=== PATIENT | female | born 1995 | race Caucasian/White ===

== ENCOUNTER → 2016-10-17 | Outpatient (CLI) | payer OTHER ==
[~2016-10-17] MED LIST: ADVAIR DISKUS 11 DSK INH; ALBUTEROL2.5 MG/0.5 INH; AMOXICILLIN500 M2 PO; BACTRIM DS 8001 TAB PO; FLINTSTONES1 EACH PO; KLONOPIN1 M1 PO; NEURONTIN400 MG PO; OMEPRAZOLE MAGN20 MG PO; Zofran4 MG PO
== END | disposition home or self-care (01) ==
LOC: US 13:00
DX: Z34.92 Encounter for supervision of normal pregnancy, unspecified, second trimester (principal); Z3A.21 21 weeks gestation of pregnancy

== ENCOUNTER → 2016-12-31 | Outpatient (CLI) | payer OTHER | END | disposition home or self-care (01) | LOC: LAB 07:28 | DX: Z34.83 Encounter for supervision of other normal pregnancy, third trimester (principal); Z3A.00 Weeks of gestation of pregnancy not specified ==

== ENCOUNTER → 2017-06-17 | Outpatient (CLI) | payer OTHER | END | disposition home or self-care (01) | LOC: US 16:31 | DX: R10.2 Pelvic and perineal pain (principal) ==

== ENCOUNTER → 2018-06-24 | Outpatient (CLI) | payer OTHER ==
[~2018-06-24] MED LIST changes: +MACROBID100 M1 PO; +PYRIDIUM100 MG PO
== END | disposition home or self-care (01) ==
LOC: US 16:00
DX: R10.31 Right lower quadrant pain (principal); R10.819 Abdominal tenderness, unspecified site

== ENCOUNTER → 2019-04-07 | Outpatient (CLI) | payer OTHER ==
[~2019-04-07] MED LIST changes: +AUGMENTIN125 MG/5 M PO; +PREDNISONE10 MG PO; +SEPTDS PO
[2019-04-07 15:25] LABS: HEMATOCRIT 40.2 % (37.0-47.0); HEMOGLOBIN 13.2 g/dl (12.0-16.0); MEAN CELL VOLUME 83.8 fl (81.0-99.0); MEAN CORPUSCULAR HGB 27.5 pg (27.0-31.0); MEAN CORPUSCULAR HGB CONC 32.8 g/dl (33.0-37.0); MEAN PLATELET VOLUME 10.3 fl (9.6-12.3); RED BLOOD COUNT 4.8 10*6/uL (4.10-5.10); WHITE BLOOD COUNT 6.7 10*3/uL (4.8-10.8)
[2019-04-07 15:50] LABS: ALBUMIN 4.2 gm/dl (3.1-4.5); ALKALINE PHOSPHATASE 42 U/L (45-117); BUN 9 mg/dl (7-24); CHLORIDE 108 mmol/L (98-107); CHOLESTEROL 141 mg/dL (<200); CREATININE 0.78 mg/dL (0.55-1.02); HDL CHOLESTEROL 59 mg/dl (40-60); LDL CHOLESTEROL 72 mg/dL (9-159); POTASSIUM 3.8 mmol/L (3.5-5.1); SGOT/AST 9 IU/L (3-35); SGPT/ALT 15 U/L (12-78); SODIUM 139 mmol/L (136-145); TOTAL PROTEIN 7.5 gm/dL (6.4-8.2); TRIGLYCERIDES 51 mg/dl (<150); VLDL CHOLESTEROL 10 mg/dL (6-40)
== END | disposition home or self-care (01) ==
LOC: LAB 14:30
PROVIDERS: Family Medicine
DX: E55.9 Vitamin D deficiency, unspecified (principal); R53.83 Other fatigue; R63.5 Abnormal weight gain; K21.9 Gastro-esophageal reflux disease without esophagitis

== ENCOUNTER 2019-04-14 22:32 | Emergency (ER) | payer OTHER ==
[~2019-04-14] VITALS: Wt 47.6 kg
[~2019-04-14 22:32] MED LIST changes: -SEPTDS PO
[2019-04-14 23:08] LABS: BILIRUBIN NEGATIVE (NEGATIVE); BLOOD 3+ (NEGATIVE); CLARITY SL CLOUDY (CLEAR); COLOR YELLOW (YELLOW); GLUCOSE NEGATIVE (NEGATIVE); KETONE NEGATIVE (NEGATIVE); LEUKO ESTERASE 2+ (NEGATIVE); NITRITE NEGATIVE (NEGATIVE); SPECIFIC GRAVITY 1.015 (1.005-1.030); UROBILINOGEN 0.2 E.U./dl (0.2-1.0)
[2019-04-14 23:24] LABS: EPITHELIAL CELLS 35-40; RBC 21-30 rbc/hpf (0-2); WBC 31-40 wbc/hpf (0-5)
[2019-04-14 23:25] LABS: BACTERIA TRACE
[2019-04-15 00:11] LABS: BASO % 0.3 % (0.0-1.0); EOS # 0.3 10*3/uL (0.0-0.4); HEMATOCRIT 35.7 % (37.0-47.0); HEMOGLOBIN 11.6 g/dl (12.0-16.0); LYMPH # 2.2 10*3/uL (1.3-4.4); LYMPH % 19.8 % (27.0-41.0); MEAN CELL VOLUME 85.4 fl (81.0-99.0); MEAN CORPUSCULAR HGB 27.8 pg (27.0-31.0); MEAN CORPUSCULAR HGB CONC 32.5 g/dl (33.0-37.0); MEAN PLATELET VOLUME 9.9 fl (9.6-12.3); MONO # 0.5 10*3/uL (0.1-1.0); MONO % 4.9 % (3.0-9.0); NEUT # 7.8 10*3/uL (2.3-7.9); NEUT % 71.7 % (47.0-73.0); PLATELET COUNT AUTOMATED 302 10*3/uL (130-400); RED BLOOD COUNT 4.18 10*6/uL (4.10-5.10); RED CELL DISTRI WIDTH 12.1 % (0-14.5); WHITE BLOOD COUNT 10.9 10*3/uL (4.8-10.8)
[2019-04-15 00:25] LABS: ALBUMIN 3.6 gm/dl (3.1-4.5); ALKALINE PHOSPHATASE 40 U/L (45-117); BUN 11 mg/dl (7-24); CHLORIDE 109 mmol/L (98-107); CREATININE 0.85 mg/dL (0.55-1.02); LIPASE 88 U/L (73-393); POTASSIUM 4.2 mmol/L (3.5-5.1); SGOT/AST 5 IU/L (3-35); SGPT/ALT 11 U/L (12-78); SODIUM 142 mmol/L (136-145); TOTAL PROTEIN 6.5 gm/dL (6.4-8.2)
[2019-04-15 00:27] LABS: BETA-HCG, QUANT < 1.0 mIU/mL (1-3)
[2019-04-15] MEDS ORDERED: SEPTDS PO (00:33)
== END 2019-04-15 00:55 | disposition home or self-care (01) ==
LOC: ED 22:32
PROVIDERS: Student in an Organized Health Care Education/Training Program
DX: N39.0 Urinary tract infection, site not specified (principal); J45.909 Unspecified asthma, uncomplicated; Z79.899 Other long term (current) drug therapy; Z79.2 Long term (current) use of antibiotics

== ENCOUNTER → 2019-08-12 | Outpatient (CLI) | payer OTHER ==
[~2019-08-12] MED LIST changes: +SEPTDS PO
== END | disposition home or self-care (01) ==
LOC: LAB 13:15
DX: R06.02 Shortness of breath (principal)

== ENCOUNTER → 2019-10-18 | Outpatient (CLI) | payer OTHER ==
[2019-10-18 10:57] LABS: HEMATOCRIT 40.4 % (37.0-47.0); HEMOGLOBIN 12.8 g/dl (12.0-16.0); MEAN CELL VOLUME 86.1 fl (81.0-99.0); MEAN CORPUSCULAR HGB 27.3 pg (27.0-31.0); MEAN CORPUSCULAR HGB CONC 31.7 g/dl (33.0-37.0); MEAN PLATELET VOLUME 10.1 fl (9.6-12.3); RED BLOOD COUNT 4.69 10*6/uL (4.10-5.10); RED CELL DISTRI WIDTH 11.9 % (0-14.5)
[2019-10-18 11:11] LABS: ALKALINE PHOSPHATASE 46 U/L (45-117); BUN 12 mg/dl (7-24); CHLORIDE 110 mmol/L (98-107); CREATININE 0.76 mg/dL (0.55-1.02); POTASSIUM 3.9 mmol/L (3.5-5.1); SGPT/ALT 14 U/L (12-78); SODIUM 142 mmol/L (136-145); TOTAL PROTEIN 7.3 gm/dL (6.4-8.2)
[2019-10-18 11:13] LABS: BETA-HCG, QUANT < 1.0 mIU/mL (1-3); SGOT/AST < 3 IU/L (3-35)
== END | disposition home or self-care (01) ==
LOC: LAB 10:04
PROVIDERS: Family Medicine
DX: D64.9 Anemia, unspecified (principal); N92.6 Irregular menstruation, unspecified

== ENCOUNTER → 2019-10-24 | Outpatient (CLI) | payer OTHER | LOC: RAD 14:11 | DX: J45.909 Unspecified asthma, uncomplicated (principal); M41.82 Other forms of scoliosis, cervical region ==

== ENCOUNTER → 2019-11-03 | Outpatient (CLI) | payer OTHER | LOC: RAD 16:20 | DX: M54.5 Low back pain (principal) ==

== ENCOUNTER 2020-06-04 14:41 | Emergency (ER) | payer OTHER ==
[~2020-06-04] VITALS: Ht 157.4 cm; Wt 46.3 kg
[2020-06-04 15:58] LABS: BILIRUBIN NEGATIVE; CLARITY CLOUDY (CLEAR); COLOR YELLOW (YELLOW); GLUCOSE NEGATIVE; KETONE NEGATIVE
[2020-06-04 15:59] LABS: BACTERIA TRACE; BLOOD 3+ (NEGATIVE); LEUKO ESTERASE 3+ (NEGATIVE); NITRITE NEGATIVE (NEGATIVE); RBC TNTC rbc/hpf (0-2); SPECIFIC GRAVITY 1.015 (1.001-1.030); UROBILINOGEN 0.2 E.U./dl (0.0-1.0); WBC 31-40 wbc/hpf (0-5)
[2020-06-04] MEDS ORDERED: SEPTDS PO (16:14)
[2020-06-04] MEDS ORDERED: CEPHALEXIN500 M1 PO (17:31)
== END 2020-06-04 16:21 | disposition home or self-care (01) ==
LOC: ED 14:41
PROVIDERS: Nurse Practitioner Family
DX: N39.0 Urinary tract infection, site not specified (principal); J45.909 Unspecified asthma, uncomplicated

== ENCOUNTER → 2020-08-14 | Outpatient (CLI) | payer OTHER ==
[~2020-08-14] MED LIST changes: +CEPHALEXIN500 M1 PO
== END | disposition home or self-care (01) ==
LOC: US 15:30
PROVIDERS: ATTEND Nurse Practitioner Women's Health
DX: D25.2 Subserosal leiomyoma of uterus (principal); N85.8 Other specified noninflammatory disorders of uterus; N83.201 Unspecified ovarian cyst, right side

== ENCOUNTER → 2020-10-26 | Outpatient (CLI) | payer OTHER | END | disposition home or self-care (01) | LOC: US 10:19 | PROVIDERS: ATTEND Nurse Practitioner Women's Health | DX: D25.1 Intramural leiomyoma of uterus (principal) ==

== ENCOUNTER → 2021-01-14 | Outpatient (CLI) | payer OTHER ==
[2021-01-14 09:58] LABS: HEMATOCRIT 41.5 % (37.0-47.0); MEAN CELL VOLUME 85.6 fl (81.0-99.0); MEAN CORPUSCULAR HGB 27.2 pg (27.0-31.0); MEAN CORPUSCULAR HGB CONC 31.8 g/dl (33.0-37.0); MEAN PLATELET VOLUME 9.1 fl (9.6-12.3); RED BLOOD COUNT 4.85 10*6/uL (4.10-5.10); WHITE BLOOD COUNT 5.3 10*3/uL (4.8-10.8)
[2021-01-14 10:33] LABS: CHLORIDE 109 mmol/L (98-107); POTASSIUM 3.9 mmol/L (3.5-5.1); SODIUM 139 mmol/L (136-145)
[2021-01-14 11:03] LABS: VITAMIN D, 25-HYDROXY 26.3 ng/mL (30-100)
[2021-01-14 11:19] LABS: ALBUMIN 3.9 gm/dl (3.1-4.5); ALKALINE PHOSPHATASE 52 U/L (45-117); BUN 8 mg/dl (7-24); CHOLESTEROL 127 mg/dL (<200); CREATININE 0.79 mg/dL (0.55-1.02); HDL CHOLESTEROL 59 mg/dl (40-60); LDL CHOLESTEROL 58 mg/dL (9-159); SGOT/AST 5 IU/L (3-35); SGPT/ALT 14 U/L (12-78); TOTAL PROTEIN 7.5 gm/dL (6.4-8.2); TRIGLYCERIDES 52 mg/dl (<150); VLDL CHOLESTEROL 10 mg/dL (6-40)
== END | disposition home or self-care (01) ==
LOC: LAB 09:39
PROVIDERS: ATTEND Nurse Practitioner Family
DX: R53.83 Other fatigue (principal); R42 Dizziness and giddiness

== ENCOUNTER → 2021-03-06 | Outpatient (CLI) | payer OTHER | END | disposition home or self-care (01) | LOC: CARD 11:30 | PROVIDERS: ATTEND Family Medicine | DX: R00.2 Palpitations (principal); I49.1 Atrial premature depolarization; R55 Syncope and collapse ==

== ENCOUNTER → 2021-04-18 | Outpatient (CLI) | payer OTHER ==
[2021-04-18 11:25] LABS: HEMATOCRIT 40.8 % (37.0-47.0); MEAN CELL VOLUME 84.5 fl (81.0-99.0); MEAN CORPUSCULAR HGB 27.3 pg (27.0-31.0); MEAN CORPUSCULAR HGB CONC 32.4 g/dl (33.0-37.0); MEAN PLATELET VOLUME 9.9 fl (9.6-12.3); RED BLOOD COUNT 4.83 10*6/uL (4.10-5.10); RED CELL DISTRI WIDTH 11.9 % (0-14.5); WHITE BLOOD COUNT 6.4 10*3/uL (4.8-10.8)
[2021-04-18 11:49] LABS: ALBUMIN 4.1 gm/dl (3.1-4.5); ALKALINE PHOSPHATASE 45 U/L (45-117); BUN 7 mg/dl (7-24); CHLORIDE 110 mmol/L (98-107); CHOLESTEROL 143 mg/dL (<200); CREATININE 0.69 mg/dL (0.55-1.02); LDL CHOLESTEROL 77 mg/dL (9-159); POTASSIUM 3.9 mmol/L (3.5-5.1); SGOT/AST 4 IU/L (3-35); SGPT/ALT 15 U/L (12-78); SODIUM 138 mmol/L (136-145); TOTAL PROTEIN 7.2 gm/dL (6.4-8.2); TRIGLYCERIDES 59 mg/dl (<150)
[2021-04-18 12:38] LABS: VITAMIN D, 25-HYDROXY 47.1 ng/mL (30-100)
[2021-04-19 05:06] LABS: RHEUMATOID ARTHRITIS FACTOR <10.0 IU/mL (0.0-13.9)
== END | disposition home or self-care (01) ==
LOC: LAB 10:46
PROVIDERS: ATTEND Family Medicine
DX: E03.9 Hypothyroidism, unspecified (principal); M10.9 Gout, unspecified; M79.10 Myalgia, unspecified site; M25.50 Pain in unspecified joint

== ENCOUNTER → 2021-07-03 | Outpatient (CLI) | payer OTHER | END | disposition home or self-care (01) | LOC: CT 13:00 | PROVIDERS: ATTEND Family Medicine | DX: N20.0 Calculus of kidney (principal); R31.9 Hematuria, unspecified ==

== ENCOUNTER → 2021-07-25 | Outpatient (CLI) | payer OTHER | END | disposition home or self-care (01) | LOC: MAMMO 10:00 | PROVIDERS: ATTEND Family Medicine | DX: D25.1 Intramural leiomyoma of uterus (principal); D27.1 Benign neoplasm of left ovary; R92.1 Mammographic calcification found on diagnostic imaging of breast ==

== ENCOUNTER → 2021-09-04 | Outpatient (CLI) | payer OTHER ==
[2021-09-04 15:11] LABS: HEMATOCRIT 41.1 % (37.0-47.0); MEAN CELL VOLUME 83.9 fl (81.0-99.0); MEAN CORPUSCULAR HGB 27.1 pg (27.0-31.0); MEAN CORPUSCULAR HGB CONC 32.4 g/dl (33.0-37.0); MEAN PLATELET VOLUME 9.7 fl (9.6-12.3); RED BLOOD COUNT 4.9 10*6/uL (4.10-5.10); WHITE BLOOD COUNT 13.3 10*3/uL (4.8-10.8)
[2021-09-04 15:30] LABS: ALBUMIN 4.5 gm/dl (3.1-4.5); BUN 5 mg/dl (7-24); CHLORIDE 107 mmol/L (98-107); POTASSIUM 3.6 mmol/L (3.5-5.1); SODIUM 140 mmol/L (136-145)
[2021-09-04 15:34] LABS: ALKALINE PHOSPHATASE 48 U/L (45-117); CREATININE 0.74 mg/dL (0.55-1.02); SGOT/AST 8 IU/L (3-35); SGPT/ALT 15 U/L (12-78); TOTAL PROTEIN 7.8 gm/dL (6.4-8.2)
== END | disposition home or self-care (01) ==
LOC: LAB 14:40
PROVIDERS: ATTEND Family Medicine
DX: L50.9 Urticaria, unspecified (principal)

== ENCOUNTER 2021-09-08 15:46 | Emergency (ER) | payer OTHER ==
[~2021-09-08] VITALS: Wt 48.1 kg
[2021-09-08] MEDS ORDERED: NEXPLANON68 M2 SQ (16:29)
[2021-09-08] MEDS ORDERED: FLOVENT HFA12 G1 INH (16:30)
[2021-09-08] MEDS ORDERED: FLONASE ALLERG9.9 ML NAS (16:30)
[2021-09-08] MEDS ORDERED: VENT7GM INH (16:31)
[2021-09-08 16:47] LABS: HEMATOCRIT 40.3 % (37.0-47.0); MEAN CELL VOLUME 82.6 fl (81.0-99.0); MEAN CORPUSCULAR HGB 27.7 pg (27.0-31.0); MEAN CORPUSCULAR HGB CONC 33.5 g/dl (33.0-37.0); MEAN PLATELET VOLUME 9.7 fl (9.6-12.3); PLATELET COUNT AUTOMATED 349 10*3/uL (130-400); RED BLOOD COUNT 4.88 10*6/uL (4.10-5.10); WHITE BLOOD COUNT 14.3 10*3/uL (4.8-10.8)
[2021-09-08 17:03] LABS: ALBUMIN 4.3 gm/dl (3.1-4.5); ALKALINE PHOSPHATASE 45 U/L (45-117); BUN 8 mg/dl (7-24); CHLORIDE 105 mmol/L (98-107); CREATININE 0.77 mg/dL (0.55-1.02); POTASSIUM 3.8 mmol/L (3.5-5.1); SGOT/AST 4 IU/L (3-35); SGPT/ALT 14 U/L (12-78); SODIUM 140 mmol/L (136-145); TOTAL PROTEIN 7.5 gm/dL (6.4-8.2)
[2021-09-08 17:10] LABS: TOTAL CELLS COUNTED 100 #CELLS
[2021-09-08 17:11] LABS: PLATELET SUFFICIENCY NORMAL (NORMAL); THYROID STIM HORMONE (HS) 0.224 uIU/ml (0.358-4.75)
== END 2021-09-08 19:10 | disposition home or self-care (01) ==
LOC: ED 15:46
PROVIDERS: Emergency Medicine
DX: F45.8 Other somatoform disorders (principal); R94.6 Abnormal results of thyroid function studies; Z88.1 Allergy status to other antibiotic agents; Z79.899 Other long term (current) drug therapy

== ENCOUNTER → 2021-11-21 | Outpatient (CLI) | payer OTHER ==
[~2021-11-21] MED LIST changes: +FLONASE ALLERG9.9 ML NAS; +FLOVENT HFA12 G1 INH; +NEXPLANON68 M2 SQ; +VENT7GM INH
[2021-11-21 14:43] LABS: THYROID STIM HORMONE (HS) 0.355 uIU/ml (0.358-4.75)
== END | disposition home or self-care (01) ==
LOC: LAB 13:25
PROVIDERS: ATTEND Internal Medicine Gastroenterology
DX: R13.19 Other dysphagia (principal)

== ENCOUNTER 2021-12-02 14:44 | Emergency (ER) | payer OTHER ==
[~2021-12-02] VITALS: Ht 157.4 cm; Wt 44.5 kg
== END 2021-12-02 20:55 | disposition home or self-care (01) ==
LOC: ED 14:44
DX: K22.4 Dyskinesia of esophagus (principal); Z88.2 Allergy status to sulfonamides; Z88.1 Allergy status to other antibiotic agents; Z79.899 Other long term (current) drug therapy

== ENCOUNTER → 2021-12-02 | Outpatient (CLI) | payer OTHER | END | disposition home or self-care (01) | LOC: US 13:00 | PROVIDERS: ATTEND Internal Medicine Gastroenterology | DX: E07.89 Other specified disorders of thyroid (principal); R13.19 Other dysphagia ==

== ENCOUNTER → 2021-12-04 | Outpatient (CLI) | payer OTHER ==
[2021-12-04 13:12] LABS: BASO % 0.4 % (0.0-1.0); EOS # 0.4 10*3/uL (0.0-0.4); EOS % 5.3 % (1.0-4.0); HEMATOCRIT 40.7 % (37.0-47.0); LYMPH # 0.8 10*3/uL (1.3-4.4); LYMPH % 10.4 % (27.0-41.0); MEAN CELL VOLUME 85.7 fl (81.0-99.0); MEAN CORPUSCULAR HGB 27.8 pg (27.0-31.0); MEAN CORPUSCULAR HGB CONC 32.4 g/dl (33.0-37.0); MEAN PLATELET VOLUME 10.1 fl (9.6-12.3); MONO # 0.3 10*3/uL (0.1-1.0); MONO % 3.7 % (3.0-9.0); NEUT # 6.1 10*3/uL (2.3-7.9); NEUT % 80.1 % (47.0-73.0); PLATELET COUNT AUTOMATED 294 10*3/uL (130-400); RED BLOOD COUNT 4.75 10*6/uL (4.10-5.10); RED CELL DISTRI WIDTH 12.1 % (0-14.5); WHITE BLOOD COUNT 7.6 10*3/uL (4.8-10.8)
[2021-12-04 13:28] LABS: ALKALINE PHOSPHATASE 40 U/L (45-117); BUN 7 mg/dl (7-24); CHLORIDE 109 mmol/L (98-107); CREATININE 0.75 mg/dL (0.55-1.02); POTASSIUM 3.9 mmol/L (3.5-5.1); SGOT/AST 9 IU/L (3-35); SGPT/ALT 15 U/L (12-78); SODIUM 141 mmol/L (136-145)
[2021-12-05 14:09] LABS: t-TRANSGLUTAMINASE (tTG) IGA <2 U/mL (0-3); t-TRANSGLUTAMINASE (tTG) IgG <2 U/mL (0-5)
[2021-12-05 16:08] LABS: ENDOMYSIAL ANTIBODY IgA Negative (Negative)
== END | disposition home or self-care (01) ==
LOC: LAB 12:02
PROVIDERS: ATTEND Internal Medicine Gastroenterology
DX: K44.9 Diaphragmatic hernia without obstruction or gangrene (principal); R13.10 Dysphagia, unspecified; R11.10 Vomiting, unspecified; R63.4 Abnormal weight loss; K22.2 Esophageal obstruction; R19.7 Diarrhea, unspecified

== ENCOUNTER → 2022-07-02 | Outpatient (CLI) | payer OTHER | LOC: LAB 12:40 | PROVIDERS: ATTEND Family Medicine | DX: B83.9 Helminthiasis, unspecified (principal) ==

== ENCOUNTER → 2023-07-07 | Outpatient (CLI) | payer OTHER ==
[2023-07-07 10:41] LABS: BASO % 0.4 % (0.0-1.0); EOS # 0.1 10*3/uL (0.0-0.4); EOS % 2.7 % (1.0-4.0); HEMATOCRIT 37.4 % (37.0-47.0); LYMPH % 21.4 % (27.0-41.0); MEAN CORPUSCULAR HGB 26.5 pg (27.0-31.0); MEAN CORPUSCULAR HGB CONC 31.6 g/dl (33.0-37.0); MONO # 0.3 10*3/uL (0.1-1.0); MONO % 5.1 % (3.0-9.0); NEUT # 3.4 10*3/uL (2.3-7.9); NEUT % 70.2 % (47.0-73.0); PLATELET COUNT AUTOMATED 326 10*3/uL (130-400); RED BLOOD COUNT 4.45 10*6/uL (4.10-5.10); RED CELL DISTRI WIDTH 12.6 % (0-14.5); WHITE BLOOD COUNT 4.9 10*3/uL (4.8-10.8)
[2023-07-07 11:27] LABS: VITAMIN D, 25-HYDROXY 29.1 ng/mL (30-100)
[2023-07-07 11:28] LABS: ALKALINE PHOSPHATASE 55 U/L (46-116); BUN 6 mg/dl (9-23); CHLORIDE 109 mmol/L (98-107); CHOLESTEROL 153 mg/dL (<200); FREE T4 1.04 ng/dl (0.89-1.76); LDL CHOLESTEROL 85 mg/dL (9-159); POTASSIUM 4.1 mmol/L (3.4-5.1); TOTAL PROTEIN 7.2 gm/dL (6.0-8.0); TRIGLYCERIDES 63 mg/dl (<150)
[2023-07-07 11:30] LABS: SGPT/ALT < 7 U/L (10-49)
[2023-07-08 15:07] LABS: THYROGLOBULIN ANTIBODY 1.4 IU/mL (0.0-0.9)
[2023-07-09 08:09] LABS: THYROID STIM IMMUNOGLOBULIN 0.5 IU/L (0.00-0.55)
== END | disposition home or self-care (01) ==
LOC: LAB 10:08
PROVIDERS: ATTEND Internal Medicine
DX: R53.83 Other fatigue (principal); R79.89 Other specified abnormal findings of blood chemistry; E55.9 Vitamin D deficiency, unspecified; E78.5 Hyperlipidemia, unspecified

== ENCOUNTER → 2024-03-24 | Outpatient (CLI) | payer OTHER | END | disposition home or self-care (01) | LOC: LAB 03:00 | PROVIDERS: ATTEND Nurse Practitioner Family | DX: K21.9 Gastro-esophageal reflux disease without esophagitis (principal); K58.9 Irritable bowel syndrome, unspecified ==

== ENCOUNTER → 2024-05-13 | Outpatient (CLI) | payer OTHER ==
[2024-05-13 10:06] LABS: BASO # 0.1 10*3/uL (0.0-0.1); BASO % 1.1 % (0.0-1.0); EOS # 0.2 10*3/uL (0.0-0.4); EOS % 3.4 % (1.0-4.0); HEMATOCRIT 36.9 % (37.0-47.0); LYMPH # 1.4 10*3/uL (1.3-4.4); MEAN CORPUSCULAR HGB 27.1 pg (27.0-31.0); MEAN CORPUSCULAR HGB CONC 33.1 g/dl (33.0-37.0); MEAN PLATELET VOLUME 9.6 fl (9.6-12.3); MONO # 0.3 10*3/uL (0.1-1.0); MONO % 5.8 % (3.0-9.0); NEUT # 2.7 10*3/uL (2.3-7.9); NEUT % 58.5 % (47.0-73.0); PLATELET COUNT AUTOMATED 274 10*3/uL (130-400); RED CELL DISTRI WIDTH 13.3 % (0-14.5); WHITE BLOOD COUNT 4.6 10*3/uL (4.8-10.8)
[2024-05-13 10:40] LABS: ALKALINE PHOSPHATASE 47 U/L (46-116); BUN 5 mg/dl (9-23); CHLORIDE 108 mmol/L (98-107); CHOLESTEROL 150 mg/dL (<200); FREE T4 1.22 ng/dl (0.89-1.76); LDL CHOLESTEROL 84 mg/dL (9-159); POTASSIUM 3.8 mmol/L (3.4-5.1); TOTAL PROTEIN 6.8 gm/dL (6.0-8.0); TRIGLYCERIDES 65 mg/dl (<150)
[2024-05-13 10:41] LABS: SGPT/ALT < 7 U/L (5-49)
[2024-05-13 10:45] LABS: VITAMIN D, 25-HYDROXY 27.4 ng/mL (30-100)
[2024-05-14 08:12] LABS: THYROID PEROXIDASE (TPO) AB >600 IU/mL (0-34)
[2024-05-16 15:07] LABS: THYROGLOBULIN ANTIBODY 1.5 IU/mL (0.0-0.9)
== END | disposition home or self-care (01) ==
LOC: LAB 09:32
PROVIDERS: ATTEND Internal Medicine
DX: E55.9 Vitamin D deficiency, unspecified (principal); E78.5 Hyperlipidemia, unspecified; R79.89 Other specified abnormal findings of blood chemistry; R53.83 Other fatigue

== ENCOUNTER → 2024-08-10 | Outpatient (CLI) | payer OTHER ==
[~2024-08-10] MED LIST changes: +Technetium Tc-99m pertechnetat 1 KIT KIT IV SCH
== END | disposition home or self-care (01) ==
LOC: NM 08:00
PROVIDERS: ATTEND Internal Medicine
DX: E05.90 Thyrotoxicosis, unspecified without thyrotoxic crisis or storm (principal); R00.2 Palpitations

== ENCOUNTER → 2024-09-09 | Outpatient (CLI) | payer OTHER ==
[~2024-09-09] MED LIST changes: -Technetium Tc-99m pertechnetat 1 KIT KIT IV SCH
== END | disposition home or self-care (01) ==
LOC: MRI 03:14
PROVIDERS: ATTEND Family Medicine
DX: G43.909 Migraine, unspecified, not intractable, without status migrainosus (principal); J34.89 Other specified disorders of nose and nasal sinuses

== ENCOUNTER → 2025-04-29 | Outpatient (CLI) | payer OTHER ==
[2025-04-29 11:05] LABS: BASO # 0.0 10*3/uL (0.0-0.1); BASO % 0.6 % (0.0-1.0); EOS # 0.1 10*3/uL (0.0-0.4); EOS % 1.5 % (1.0-4.0); MEAN CELL VOLUME 85.2 fl (81.0-99.0); MEAN CORPUSCULAR HGB 27.3 pg (27.0-31.0); MEAN PLATELET VOLUME 9.2 fl (9.6-12.3); MONO # 0.3 10*3/uL (0.1-1.0); MONO % 4.2 % (3.0-9.0); NEUT # 4.9 10*3/uL (2.3-7.9); NEUT % 72.9 % (47.0-73.0); NUCLEATED RED BLOOD CELL 0.0 % (0.0-0.0); NUCLEATED RED BLOOD CELL 0.0 10*3/uL (0.0-0.0); PLATELET COUNT AUTOMATED 329 10*3/uL (130-400); RED CELL DISTRI WIDTH 12.2 % (0-14.5)
[2025-04-29 11:30] LABS: BUN 8 mg/dl (9-23); SGPT/ALT 8 U/L (5-49)
[2025-04-29 11:33] LABS: FREE T4 1.28 ng/dl (0.89-1.76)
== END ==
LOC: LAB 10:46
PROVIDERS: Student in an Organized Health Care Education/Training Program; ATTEND Internal Medicine Endocrinology, Diabetes & Metabolism
DX: E05.90 Thyrotoxicosis, unspecified without thyrotoxic crisis or storm (principal)